=== PATIENT | female | born 1985 | race Caucasian/White ===

== ENCOUNTER → 2022-04-23 | Outpatient (REF) | payer OTHER ==
[2022-04-23 16:50] LABS: BASO % 0.6 % (0.0-1.0); EOS % 0.3 % (0.0-3.0); HEMATOCRIT 45.9 % (36.0-47.0); HEMOGLOBIN 16.1 g/dl (12.0-15.5); LYMPH # 2.3 10^3/uL (1.5-5.0); LYMPH % 33.1 % (24.0-44.0); MEAN CORPUSCULAR HEMOGLOBIN 31.6 pg (27.0-33.0); MEAN CORPUSCULAR HGB CONC 35.1 g/dl (32.0-36.5); MEAN CORPUSCULAR VOLUME 90.2 fl (80.0-96.0); MONO # 0.4 10^3/uL (0.0-0.8); MONO % 6.4 % (2.0-8.0); NEUTROPHILS # 4.1 10^3/uL (1.5-8.5); NEUTROPHILS % 59.5 % (36.0-66.0); PLATELET COUNT, AUTOMATED 246 10^3/uL (150-450); RED BLOOD COUNT 5.09 10^6/uL (4.00-5.40); WHITE BLOOD COUNT 6.9 10^3/uL (4.0-10.0)
[2022-04-23 18:31] LABS: ALBUMIN 4.4 GM/DL (3.2-5.2); ALT/SGPT 37 U/L (12-78); BILIRUBIN,TOTAL 0.5 MG/DL (0.2-1.0); BLOOD UREA NITROGEN 14 MG/DL (7-18); CARBON DIOXIDE LEVEL 24 MEQ/L (21-32); CHLORIDE LEVEL 107 MEQ/L (98-107); CREATININE FOR GFR 0.91 MG/DL (0.55-1.30); GLOMERULAR FILTRATION RATE > 60.0 (>60); GLUCOSE, FASTING 90 MG/DL (70-100); POTASSIUM SERUM 4.9 MEQ/L (3.5-5.1); SODIUM LEVEL 139 MEQ/L (136-145); TOTAL PROTEIN 7.5 GM/DL (6.4-8.2)
[2022-04-23 18:37] LABS: TOTAL 25(OH) VITAMIN D 39.5 NG/ML (30.0-100.0)
== END ==
LOC: M SFHCADAM 11:30
PROVIDERS: ATTEND Physician Assistant Medical
DX: F33.1 Major depressive disorder, recurrent, moderate (principal); F41.1 Generalized anxiety disorder; F17.210 Nicotine dependence, cigarettes, uncomplicated; N91.2 Amenorrhea, unspecified

== ENCOUNTER → 2023-03-22 | Outpatient (REF) | payer OTHER | LOC: M SFHCADAM 12:51 | PROVIDERS: ATTEND Physician Assistant Medical | DX: Z01.419 Encounter for gynecological examination (general) (routine) without abnormal findings (principal); Z12.4 Encounter for screening for malignant neoplasm of cervix ==

== ENCOUNTER 2023-09-20 08:31 | Inpatient (IN) | payer MEDICAID, OTHER ==
[~2023-09-20] VITALS: Ht 160 cm; Wt 68.2 kg
[2023-09-20] MEDS ORDERED: MED REC IN PROGRESS XX SCH (09:15)
[2023-09-20 09:37] LABS: HEMATOCRIT 46.1 % (36.0-47.0); HEMOGLOBIN 16.1 g/dl (12.0-15.5); MEAN CORPUSCULAR HEMOGLOBIN 30.8 pg (27.0-33.0); MEAN CORPUSCULAR HGB CONC 34.9 g/dl (32.0-36.5); MEAN CORPUSCULAR VOLUME 88.3 fl (80.0-96.0); PLATELET COUNT, AUTOMATED 282 10^3/uL (150-450); RED BLOOD COUNT 5.22 10^6/uL (4.00-5.40)
[2023-09-20] MEDS ORDERED: HOME MED LIST COMPLETE! XX SCH (09:45)
[2023-09-20 09:52] LABS: ETHYL ALCOHOL (ETHANOL) < 0.003 % (0.000-0.010)
[2023-09-20 09:53] LABS: ALBUMIN 4.2 G/DL (3.2-5.2); ALKALINE PHOSPHATASE 76 U/L (46-116); ALT/SGPT 22 U/L (7.0-40); AST/SGOT 14 U/L (<34); BILIRUBIN,DIRECT 0.2 MG/DL (<0.4); BILIRUBIN,TOTAL 0.6 MG/DL (0.3-1.2); BLOOD UREA NITROGEN 14 MG/DL (9-23); CALCIUM LEVEL 9.8 MG/DL (8.5-10.1); CARBON DIOXIDE LEVEL 25 MMOL/L (20-31); CHLORIDE LEVEL 105 MMOL/L (98-107); CREATININE FOR GFR 1.03 MG/DL (0.55-1.30); GLOMERULAR FILTRATION RATE > 60.0 (>60); GLUCOSE, FASTING 101 MG/DL (60-100); POTASSIUM SERUM 5.2 MMOL/L (3.5-5.1); SALICYLATE LEVEL < 3.0 MG/DL (<30); SODIUM LEVEL 138 MMOL/L (136-145); TOTAL PROTEIN 7.2 G/DL (5.7-8.2)
[2023-09-20 09:56] LABS: THYROID STIMULATING HORMONE 6.468 uIU/ML (0.55-4.78)
[2023-09-20 09:57] LABS: BARBITURATES URINE NEGATIVE (NEGATIVE); CANNABINOIDS URINE NEGATIVE (NEGATIVE); COCAINE METABOLITE URINE NEGATIVE (NEGATIVE); PHENCYCLIDINE URINE NEGATIVE (NEGATIVE)
[2023-09-20 09:58] LABS: BENZODIAZEPINES URINE NEGATIVE (NEGATIVE); METHADONE URINE NEGATIVE (NEGATIVE); OPIATES URINE NEGATIVE (NEGATIVE)
[2023-09-20 09:59] LABS: AMPHETAMINES LEVEL URINE POSITIVE (NEGATIVE); HCG, SERUM QUALITATIVE NEGATIVE (NEGATIVE)
[2023-09-20] MEDS ORDERED: OLANZapine ORAL DISINTEGRATING TAB 5MG PO PRN (14:50)
[2023-09-20] MEDS ORDERED: MAALOX 30 ML SUSP *UDC PO PRN (14:50)
[2023-09-20] MEDS ORDERED: IBUPROFEN 400MG TAB PO PRN (14:50)
[2023-09-20] MEDS ORDERED: traZODone 50 MG TAB PO PRN (14:50)
[2023-09-20] MEDS ORDERED: ACETAMINOPHEN TAB 650MG DOSE (2X325MG) PO PRN (14:50)
[2023-09-20] MEDS ORDERED: MOM 30ML SUSPENSION UDC PO PRN (14:50)
[2023-09-21 06:10] VITALS: BP 134/74; TEMP 99; O2SAT 96
[2023-09-21] MEDS ORDERED: NICOTINE 14 MG/24 HR TRANSDERMAL TD PRN (10:50)
[2023-09-21 18:02] VITALS: BP 110/70; TEMP 97.2; O2SAT 96
[2023-09-21] MEDS: VENLAFAXINE 37.5 MG TAB PO SCH (20:08)
[2023-09-21] MEDS: diphenhydrAMINE 25MG CAP PO PRN (20:08)
[2023-09-22 06:57] VITALS: BP 113/54; TEMP 98.3; O2SAT 98
[2023-09-22 07:20] LABS: CHOLESTEROL RISK RATIO 5.07 (<5); HDL CHOLESTEROL 35.7 MG/DL (>40); LDL CHOLESTEROL 130.5 MG/DL (<100); NON-HDL-C 145.3 MG/DL
[2023-09-22 18:28] VITALS: BP 111/56; TEMP 97.8; O2SAT 99
[2023-09-22] MEDS: diphenhydrAMINE 25MG CAP PO PRN (21:00)
[2023-09-22] MEDS: VENLAFAXINE 37.5 MG TAB PO SCH (21:00)
[2023-09-23 06:36] VITALS: BP 115/64; TEMP 99.3; O2SAT 96
== END 2023-09-23 10:35 | disposition home or self-care (01) | DRG 755 ==
LOC: M ED 08:31 → M ED INP 14:47 → M PSY 17:45
PROVIDERS: ADMIT Student in an Organized Health Care Education/Training Program; ATTEND Student in an Organized Health Care Education/Training Program
DX: F43.23 Adjustment disorder with mixed anxiety and depressed mood (principal); R45.851 Suicidal ideations; F15.10 Other stimulant abuse, uncomplicated; Z62.810 Personal history of physical and sexual abuse in childhood; Z91.410 Personal history of adult physical and sexual abuse; F17.210 Nicotine dependence, cigarettes, uncomplicated; F43.10 Post-traumatic stress disorder, unspecified; F41.1 Generalized anxiety disorder; F21 Schizotypal disorder; F19.159 Other psychoactive substance abuse with psychoactive substance-induced psychotic disorder, unspecified; F10.20 Alcohol dependence, uncomplicated